=== PATIENT | male | born 1980 | race African-American/Black ===

== ENCOUNTER 2018-07-29 10:08 | Inpatient (IN) | payer SELFPAY ==
[~2018-07-29] VITALS: Ht 185.4 cm; Wt 104.9 kg
[2018-07-29] MEDS ORDERED: ALBU18HF INH (10:24)
[2018-07-29] MEDS ORDERED: MORPHINE SULFATE 4 MG/ML, 1ML ONE (10:43)
[2018-07-29] MEDS ORDERED: PROMETHAZINE 25 MG/ML, 1ML ONE (10:45)
[2018-07-29] MEDS ORDERED: MORPHINE SULFATE 4 MG/ML, 1ML IVPush ONE (11:00)
[2018-07-29] MEDS ORDERED: PROMETHAZINE 25 MG/ML, 1ML IM ONE (11:00)
[2018-07-29] MEDS ORDERED: OMNIPAQUE 350 MG/ML, 100ML BOTTLE ONE (11:48)
[2018-07-29] MEDS ORDERED: BENZOCAINE AEROSOL SPRAY 20%, 60ML ONE (12:56)
[2018-07-29] MEDS ORDERED: SODIUM CHLORIDE 0.9% 1,000ML IVBOLUS ONE (13:30)
[2018-07-29] MEDS ORDERED: HYDROCORTISONE 100 MG INJ. IVPush SCH (14:00)
[2018-07-29] MEDS ORDERED: morphine SULFATE 10 MG/ML, 1ML IVPush PRN (14:00)
[2018-07-29] MEDS ORDERED: PROMETHAZINE 25 MG/ML, 1ML IM PRN (14:00)
[2018-07-29] MEDS ORDERED: RACEPINEPHRINE INH 2.25%, 0.5ML NPPB PRN (14:00)
[2018-07-29] MEDS: AMPICILLIN/SULBACTAM 3 GM in SODIUM CHLORIDE 0.9% 100 ML IV SCH ×2 (14:11→19:47)
[2018-07-29 14:28] LABS: MEAN CORPUSCULAR HEMOGLOBIN 24.4 pg (27.5-34.5); MEAN CORPUSCULAR HGB CONC 32.6 g/dL (33.2-36.2); PLATELET COUNT 336 x10^3/uL (130-400); RED BLOOD COUNT 5.49 x10^6/uL (4.38-5.82); RED CELL DISTRIBUTION WIDTH 15.6 % (9.4-14.8)
[2018-07-29 14:34] LABS: ANION GAP 9 mmol/L (5-15); CALCIUM 9.2 mg/dL (8.5-10.1); CHLORIDE 111 mmol/L (98-107)
[2018-07-29 15:12] LABS: MD YES
[2018-07-29 15:19] LABS: BAND#(MANUAL) 0.15 x10^3/uL; BANDS%(MANUAL) 1 % (0-7); LYMPH#(MANUAL) 0.87 x10^3/uL (1-3.4); LYMPHS% (MANUAL) 6 % (22-44); MONOS#(MANUAL) 0.29 x10^3/uL (0.3-2.7); MONOS% (MANUAL) 2 % (2-9); SEGS% (MANUAL) 91 % (42-75)
[2018-07-29 15:20] LABS: ANISOCYTOSIS 1+; HYPOCHROMIA 1+; MICROCYTOSIS 1+
[2018-07-29 15:21] LABS: <PLATELET ESTIMATE> ADEQUATE; <PLT MORPHOLOGY> NORMAL PLT MORPH
[2018-07-29] MEDS: SODIUM CHLORIDE 0.9% 1,000 ML IV SCH (16:36)
[2018-07-29] MEDS: ACETAMINOPHEN 650 MG/20.3 ML UDC PO SCH ×2 (16:36→22:11)
[2018-07-29] MEDS: HEPARIN 5,000 UNITS/ML, 1ML SQ SCH ×2 (16:37→22:12)
[2018-07-29 20:57] VITALS: BP 110/51
[2018-07-30] MEDS: AMPICILLIN/SULBACTAM 3 GM in SODIUM CHLORIDE 0.9% 100 ML IV SCH ×4 (01:20→19:59)
[2018-07-30 01:39] VITALS: BP 114/75
[2018-07-30] MEDS: ACETAMINOPHEN 650 MG/20.3 ML UDC PO SCH ×4 (03:47→22:06)
[2018-07-30 05:41] LABS: CALCIUM 8.1 mg/dL (8.5-10.1); CHLORIDE 111 mmol/L (98-107)
[2018-07-30 05:45] LABS: ANION GAP 7 mmol/L (5-15); CREATININE 1.07 mg/dL (0.7-1.3)
[2018-07-30] MEDS: HEPARIN 5,000 UNITS/ML, 1ML SQ SCH ×3 (05:45→22:00)
[2018-07-30 05:48] LABS: BASOPHILS # (AUTO) 0.02 x10^3/uL (0-0.1); BASOPHILS % (AUTO) 0 % (0-1); EOSINOPHILS % (AUTO) 0 % (1-7); LYMPHOCYTES # (AUTO) 1.55 x10^3/uL (1-3.4); LYMPHOCYTES % (AUTO) 12 % (22-44); MD NO; MEAN CORPUSCULAR HEMOGLOBIN 24.6 pg (27.5-34.5); MEAN CORPUSCULAR HGB CONC 32.6 g/dL (33.2-36.2); MEAN CORPUSCULAR VOLUME 75.3 fL (81-97); MEAN PLATELET VOLUME 8.2 fL (7.4-10.4); MONOCYTES % (AUTO) 6 % (2-9); NEUTROPHILS # (AUTO) 10.68 x10^3/uL (1.8-6.8); NEUTROPHILS % (AUTO) 82 % (42-75); PLATELET COUNT 282 x10^3/uL (130-400); RED BLOOD COUNT 4.66 x10^6/uL (4.38-5.82); RED CELL DISTRIBUTION WIDTH 15.7 % (9.4-14.8)
[2018-07-30] MEDS: SODIUM CHLORIDE 0.9% 1,000 ML IV SCH ×2 (06:38→19:59)
[2018-07-30 07:09] VITALS: BP 115/70
[2018-07-30 13:18] VITALS: BP 121/73
[2018-07-30 20:06] VITALS: BP 126/72
[2018-07-31 01:29] VITALS: BP 120/75
[2018-07-31] MEDS: AMPICILLIN/SULBACTAM 3 GM in SODIUM CHLORIDE 0.9% 100 ML IV SCH (02:07)
[2018-07-31] MEDS: ACETAMINOPHEN 650 MG/20.3 ML UDC PO SCH ×2 (03:54→10:15)
[2018-07-31 05:04] LABS: BASOPHILS # (AUTO) 0.04 x10^3/uL (0-0.1); BASOPHILS % (AUTO) 1 % (0-1); EOSINOPHILS # (AUTO) 0.11 x10^3/uL (0-0.4); EOSINOPHILS % (AUTO) 1 % (1-7); LYMPHOCYTES # (AUTO) 2.94 x10^3/uL (1-3.4); LYMPHOCYTES % (AUTO) 39 % (22-44); MD NO; MEAN CORPUSCULAR HEMOGLOBIN 24.4 pg (27.5-34.5); MEAN CORPUSCULAR HGB CONC 32.3 g/dL (33.2-36.2); MEAN CORPUSCULAR VOLUME 75.5 fL (81-97); MEAN PLATELET VOLUME 7.8 fL (7.4-10.4); MONOCYTES # (AUTO) 0.46 x10^3/uL (0.2-0.8); MONOCYTES % (AUTO) 6 % (2-9); NEUTROPHILS # (AUTO) 4.09 x10^3/uL (1.8-6.8); NEUTROPHILS % (AUTO) 54 % (42-75); PLATELET COUNT 301 x10^3/uL (130-400); RED BLOOD COUNT 4.65 x10^6/uL (4.38-5.82); RED CELL DISTRIBUTION WIDTH 15.4 % (9.4-14.8)
[2018-07-31 05:36] LABS: FOLATE LEVEL 4.3 ng/mL (3.1-17.5)
[2018-07-31] MEDS: HEPARIN 5,000 UNITS/ML, 1ML SQ SCH (06:00)
[2018-07-31 07:23] VITALS: BP 117/78
[2018-07-31] MEDS ORDERED: AMOXICILLIN/CLAV 875-125MG TABLET PO SCH (07:30)
[2018-07-31] MEDS ORDERED: AMOX1TAB12 PO (09:55)
[2018-07-31] MEDS ORDERED: ACET650S21 PO (09:55)
== END 2018-07-31 11:05 | disposition home or self-care (01) | DRG 854 ==
LOC: ED 13:21 → EDIP 13:22 → ED 13:34 → 3NW 15:48 → DCLOUNGE 07-31 11:00
PROVIDERS: ADMIT Internal Medicine; ATTEND Internal Medicine
PROC: 0C9P0ZZ Drainage of Tonsils, Open Approach (ICD-10-PCS; principal; 2018-07-29)
DX: A41.9 Sepsis, unspecified organism (principal); J36 Peritonsillar abscess; L02.11 Cutaneous abscess of neck; J45.909 Unspecified asthma, uncomplicated; E66.9 Obesity, unspecified; I10 Essential (primary) hypertension; D64.9 Anemia, unspecified; R00.0 Tachycardia, unspecified; Z83.3 Family history of diabetes mellitus; Z88.6 Allergy status to analgesic agent
CPT/HCPCS: 36415; 70491; 80048; 82607; 82746; 83540; 83550; 85025; 96361; 96374; 96375; 99285; G0378; J0295; J2550; Q9967; J1720; J7030